=== PATIENT | male | born 1955 | race Caucasian/White ===

== ENCOUNTER 2018-06-23 11:49 | Inpatient (IN) | payer OTHER ==
[~2018-06-23] VITALS: Ht 180.3 cm; Wt 80.1 kg
[~2018-06-23 11:49] MED LIST: ERYT.5TO BOTHEYES
[2018-06-23] MEDS ORDERED: OSTEO BI-FLEX1 EAC4 PO (13:00)
[2018-06-23] MEDS ORDERED: OSTEO BI-FLEX1 EAC3 PO (13:01)
--- NOTE | 2018-06-23 15:39 | NUR ---
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 S/P STENT PLACED X1 TO THE RCA. PT IS ALERT AND ORIENTED. PT DENIES CHEST PAIN. PT STATED " I FEEL 100% BETTER" WHEN HE CAME IN BED. DENIES SHORTNESS OF BREATH. R RADIAL HAS TR BAND WHICH IS INFLATED. SLIGHT BRUISE RIGHT AT THE PUNCTURE SIGHT. PULSES ARE PALPABLE PT DENIES NUMBNESS AND TINGLING TO THE R WRIST. PT STATED "SORE" AT THE PUNCTURE SITE. 1400-ECHOCARDIOGRAM DONE AT THIS TIME. EKG WAS DONE. DR. GUTHRIE WAS CALLED FOR CLARIFICATION ORDERS. ORDERS RECEIVED. 1539-STABLE R RADIAL WRIST. STILL DENIES OF CHEST PAIN, NO SHORTNESS OF BREATH. FAMILY AT BEDSIDE AT THIS TIME.
--- NOTE | 2018-06-23 16:58 | NUR ---
1600-STARTED DEFLATING TR BAND AT THIS TIME. SITE STABLE. 1630-SEEN BY DR. ARBOLEDA SAT. UPDATED HER OF PT'S STATUS. NOTIFIED ADMITTING REGARDING DR. GUTHRIE REQUESTING DR. ARBOLEDA TO BE THE ADMITTING PHYSICIAN AND HE THE CONSULTING PHYSICIAN. 1645-DR. GUTHRIE WAS NOTIFIED REGARDING PT'S EPISODE OF HR IN THE 30s FOR A SHORT PERIOD OF TIME BUT PT WAS ASYMPTOMATIC. NO ORDERS RECEIVED BUT HE WANTED TO KEEP PT ICU STATUS DUE TO THE HR IN THE 30s.
--- NOTE | 2018-06-23 17:44 | NUR ---
SEEN BY DR. GUTHRIE.
--- NOTE | 2018-06-23 17:48 | NUR ---
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 TR BAND STILL INFLATED WITH 2CC AIR. WILL COMPLETELY DEFLATE CUFF SOON. PT IS AFEBRILE. EATING DINNER AT THIS TIME. PT'S DAUGHTER AT BEDSIDE. PT GIVEN INSTRUCTIONS REGARDING R RADIAL ACCESS SITE CARE. PT'S STENT CARD WAS INSERTED TO PT'S DISCHARGE INSTRUCTION ENVELOPE. PT WAS GIVEN EDUCATION PACKET. THESE EDUCATION PACKETS WERE INSERTED WITH PT'S DISCHARGE INSTURCTION ENVELOPE. ENCOURAGED PT AND DAUGHTER TO READ EDUCATION PACKET.
[2018-06-23 17:49] LABS: BASOPHILS ABSOLUTE AUTO 0.04 K/mm3 (0.00-0.23); BASOPHILS PERCENT AUTO 0 % (0-2); EOSINOPHILS ABSOLUTE AUTO 0.06 K/mm3 (0.00-0.68); EOSINOPHILS PERCENT AUTO 0 % (0-6); Hematocrit 41.5 % (37.0-53.0); Hemoglobin 13.8 g/dL (13.5-17.5); IMMATURE GRAN ABSOLUTE AUTO 0.05 K/mm3 (0.00-0.10); IMMATURE GRAN PERCENT AUTO 0 % (0-1); LYMPHOCYTES ABSOLUTE AUTO 1.82 K/mm3 (0.84-5.20); LYMPHOCYTES PERCENT AUTO 13 % (21-46); MONOCYTES ABSOLUTE AUTO 0.97 K/mm3 (0.16-1.47); MONOCYTES PERCENT AUTO 7 % (4-13); Mean Corpuscular HGB 30.9 pg (26.0-34.0); Mean Corpuscular HGB Conc 33.3 g/dL (31.5-36.5); Mean Corpuscular Volume 93 fL (80-100); Mean Platelet Volume 10.3 fL (9.1-12.4); NEUTROPHILS ABSOLUTE AUTO 11.61 K/mm3 (1.96-9.15); NEUTROPHILS PERCENT AUTO 80 % (41-73); Platelet Count 265 K/mm3 (150-400); RDW Standard Deviation 44.2 fL (35.1-46.3); Red Blood Cell Count 4.47 M/mm3 (4.30-5.90); White Blood Cell Count 14.55 K/mm3 (4.00-11.30)
[2018-06-23 18:15] LABS: Alanine Aminotransfer (ALT/SGP 23 U/L (12-78); Albumin, Blood 3.6 g/dL (3.4-5.0); Alk Phos 67 U/L (50-136); Anion Gap 6 mmol/L (6-16); Aspartate Aminotrans (AST/SGOT 36 U/L (12-37); Bilirubin, Total 0.3 mg/dL (0.1-1.0); Blood Urea Nitrogen 11 mg/dL (8-24); Bun/Creatinine Ratio 16.3 (12.0-20.0); CO2, Blood 23 mmol/L (21-32); Calcium, Blood 9.2 mg/dL (8.5-10.1); Chloride, Blood 110 mmol/L (98-108); Creatinine, Blood 0.67 mg/dL (0.60-1.20); Globulin, Blood 3.5 g/dL (2.2-4.0); Glomerular Filtration Rate >60 (60-); Glucose, Blood 97 mg/dL (70-99); Potassium, Blood 3.9 mmol/L (3.5-5.5); Sodium, Blood 139 mmol/L (136-145); Total Protein, Blood 7.1 g/dL (6.4-8.2)
--- NOTE | 2018-06-23 19:00 | NUR ---
[place] of Care: Patient alert and oriented x4, sitting upright in bed watching tv. Denies chest pain/discomfort, SOB, or dyspnea. VSS, O2-96-98% on RA. Hearth rhythm shows sinus bradycardia to NSR, 50's-70's. Rt radial access site wnl, no s/s of bleeding or hematoma, distal tempt, color, sensation wnl. Clear occlusive dressing and arm-board in place to rt radial access site. Patient instructed to not push, pull, or lift objects with rt hand. Peripheral IV to lt AC patent and intact. Uses urinal at bedside without difficulty. Call light in reach, makes, needs known. Will continue to monitor for pain, comfort, safety.
--- NOTE | 2018-06-23 19:05 | NUR ---
REMOVED TR BAND TO R WRIST AFTER BEING DEFLATED FOR AN HOUR. SLIGHT BRUISING CLOSE TO PUNCTURE SITE STILL PRESENT BUT HAS NOT PROGRESSED. PLACED A CLEAR DRESSING TO THE SITE.
--- NOTE | 2018-06-24 06:27 | NUR ---
Shift Summary: Patient slept on/off throughout shift. Continues to deny pain, discomfort, SOB, or dyspnea. VSS, O2-96-98% on RA. Heart rate mostly in the 40's while sleeping/resting, but patient remains asymptomatic, BP stable. Rt radial access site remains wnl, no s/s of bleeding or hematoma. Using urinal at bedside without difficulty. Call light in reach, makes needs known. Will continue to monitor until report to day shift RN.
--- NOTE | 2018-06-24 07:30 | NUR ---
ASSUMED CARE OF PT. PT IS ALERT AND ORIENTED. DENIES CHEST PAIN. AFEBRILE. R RADIAL WRIST ACCESS SITE IS STABLE.
--- NOTE | 2018-06-24 09:30 | NUR ---
PT AMBULATED AROUND THE UNIT. PT WAS ACCOMPANIED BY WILLIS REARDON. PT DENIES OF ANY CHEST PAIN OR DISCOMFORT NOR SHORTNESS OF BREATH DURING AMBULATION.
[2018-06-24] MEDS ORDERED: ASPI81CH PO (10:03)
[2018-06-24] MEDS ORDERED: ATOR80 PO (10:04)
[2018-06-24] MEDS ORDERED: CLOP75 PO (10:04)
[2018-06-24] MEDS ORDERED: Nicoderm Cq1 EAC1 TOP (10:05)
[2018-06-24] MEDS ORDERED: NITR.4SL SL (10:06)
--- NOTE | 2018-06-24 10:36 | NUR ---
DR. LEWIS WAS NOTIFIED THAT PT'S HR IN THE 50S. PT WAS ABLE TO AMBULATE AROUND THE UNIT, DENIES ANY CHEST PAIN OR SHORTNESS OF BREATH. 10 MINS AFTER HE AMBULATED PT HAD A 13 BEATH RUN OF V-TACH. PT WAS ASYMPTOMATIC THEN. DR. LEWIS STATED TO HOLD PT'S DISCHARGE UNTIL THIS AFTERNOON PROVIDED PT HAS NOT SHOWN ANY SIGNS OF SUSTAINED V-TACH.
--- NOTE | 2018-06-24 15:00 | NUR ---
SPOKE WITH DR. LEWIS AGAIN, PT HAD ANOTHER EPISODE OF 6 BEAT RUN V-TACH. PT WAS ASYMPTOMATIC WITH THESE EPISODES. PT HR STILL IN THE 50s. DR. LEWIS OKAYED PT TO GO HOME.
--- NOTE | 2018-06-24 15:43 | NUR ---
PT IS DISCHARGED AT THIS TIME. DISCHARGE INSTRUCTIONS GIVEN TO PT. STENT CARD INSIDE PT'S DISCHARGE INSTRUCTIONS ENVELOPE.
== END 2018-06-24 15:35 | disposition home or self-care (01) | DRG 249 ==
LOC: ER 11:49 → ICUW 11:50
PROVIDERS: Internal Medicine Interventional Cardiology; ADMIT Family Medicine
PROC: 4A023N7 Measurement of Cardiac Sampling and Pressure, Left Heart, Percutaneous Approach (ICD-10-PCS; principal; 2018-06-23)
PROC: 02703DZ Dilation of Coronary Artery, One Artery with Intraluminal Device, Percutaneous Approach (ICD-10-PCS; 2018-06-23)
PROC: B210YZZ Fluoroscopy of Single Coronary Artery using Other Contrast (ICD-10-PCS; 2018-06-23)
DX: I21.3 ST elevation (STEMI) myocardial infarction of unspecified site (principal); I10 Essential (primary) hypertension; F17.210 Nicotine dependence, cigarettes, uncomplicated; R00.1 Bradycardia, unspecified
CPT/HCPCS: 36415; 80053; 85025; 92928; 92941; 92978; 93005; 93010; 93306; 93458; 99152; 99153; 99285; C1725; C1753; C1757; C1769; C1876; C1894; J0461; J1265; J1644; J1650; J2250; J3010; J7030; Q9967

== ENCOUNTER 2018-12-18 07:20 | Emergency (ER) | payer OTHER ==
[~2018-12-18] VITALS: Ht 180.3 cm; Wt 81.7 kg
[~2018-12-18 07:20] MED LIST changes: +ASPI81CH PO; +ATOR80 PO; +CLOP75 PO; +NITR.4SL SL; +Nicoderm Cq1 EAC1 TOP; +OSTEO BI-FLEX1 EAC3 PO; +OSTEO BI-FLEX1 EAC4 PO
[2018-12-18] MEDS ORDERED: ROSU5 PO (07:38)
[2018-12-18 08:03] LABS: BASOPHILS ABSOLUTE AUTO 0.05 K/mm3 (0.00-0.23); BASOPHILS PERCENT AUTO 1 % (0-2); EOSINOPHILS ABSOLUTE AUTO 0.16 K/mm3 (0.00-0.68); EOSINOPHILS PERCENT AUTO 2 % (0-6); Hematocrit 41.8 % (37.0-53.0); Hemoglobin 13.9 g/dL (13.5-17.5); IMMATURE GRAN ABSOLUTE AUTO 0.02 K/mm3 (0.00-0.10); IMMATURE GRAN PERCENT AUTO 0 % (0-1); LYMPHOCYTES ABSOLUTE AUTO 2.23 K/mm3 (0.84-5.20); LYMPHOCYTES PERCENT AUTO 28 % (21-46); MONOCYTES ABSOLUTE AUTO 0.88 K/mm3 (0.16-1.47); MONOCYTES PERCENT AUTO 11 % (4-13); Mean Corpuscular HGB 30.2 pg (26.0-34.0); Mean Corpuscular HGB Conc 33.3 g/dL (31.5-36.5); Mean Corpuscular Volume 91 fL (80-100); Mean Platelet Volume 10.5 fL (9.1-12.4); NEUTROPHILS ABSOLUTE AUTO 4.53 K/mm3 (1.96-9.15); NEUTROPHILS PERCENT AUTO 58 % (41-73); Platelet Count 290 K/mm3 (150-400); RDW Coefficient Variation 12.7 % (11.7-14.2); RDW Standard Deviation 41.6 fL (35.1-46.3); White Blood Cell Count 7.87 K/mm3 (4.00-11.30)
[2018-12-18 09:24] LABS: Alanine Aminotransfer (ALT/SGP 36 U/L (12-78); Albumin, Blood 3.8 g/dL (3.4-5.0); Albumin/Globulin Ratio 1.2 (0.8-1.8); Alk Phos 65 U/L (50-136); Anion Gap 3 mmol/L (6-16); Aspartate Aminotrans (AST/SGOT 26 U/L (12-37); Bilirubin, Total 0.5 mg/dL (0.1-1.0); Blood Urea Nitrogen 12 mg/dL (8-24); Bun/Creatinine Ratio 15.7 (12.0-20.0); CO2, Blood 26 mmol/L (21-32); Calcium, Blood 8.3 mg/dL (8.5-10.1); Chloride, Blood 111 mmol/L (98-108); Creatinine, Blood 0.76 mg/dL (0.60-1.20); Globulin, Blood 3.3 g/dL (2.2-4.0); Glomerular Filtration Rate >60 (60-); Glucose, Blood 105 mg/dL (70-99); Potassium, Blood 4.3 mmol/L (3.5-5.5); Sodium, Blood 140 mmol/L (136-145); Total Protein, Blood 7.1 g/dL (6.4-8.2); Troponin I <0.015 ng/mL (0.000-0.040)
== END 2018-12-18 09:46 | disposition home or self-care (01) ==
LOC: ER 07:20
PROVIDERS: Emergency Medicine
DX: R07.9 Chest pain, unspecified (principal); I25.2 Old myocardial infarction; F17.290 Nicotine dependence, other tobacco product, uncomplicated; Z88.5 Allergy status to narcotic agent; Z88.8 Allergy status to other drugs, medicaments and biological substances; Z79.899 Other long term (current) drug therapy; Z79.82 Long term (current) use of aspirin
CPT/HCPCS: 36415; 71046; 80053; 83690; 84484; 85025; 93005; 93010; 99285-25

== ENCOUNTER → 2019-01-26 | Outpatient (CLI) | payer OTHER ==
[~2019-01-26] MED LIST changes: +ROSU5 PO
[2019-01-27 14:12] LABS: Stool Occult Bld Immuno 1 Negative (NEGATIVE)
== END ==
LOC: LAB 14:00 → LAB SHORT 14:00
PROVIDERS: Nurse Practitioner Family
DX: Z12.11 Encounter for screening for malignant neoplasm of colon (principal)
CPT/HCPCS: G0328

== ENCOUNTER 2020-11-11 18:09 | Emergency (ER) | payer OTHER ==
[~2020-11-11] VITALS: Ht 180.3 cm; Wt 82.5 kg
[2020-11-11 18:40] LABS: BASOPHILS ABSOLUTE AUTO 0.06 K/mm3 (0.00-0.23); BASOPHILS PERCENT AUTO 1 % (0-2); EOSINOPHILS ABSOLUTE AUTO 0.23 K/mm3 (0.00-0.68); EOSINOPHILS PERCENT AUTO 2 % (0-6); Hematocrit 34.8 % (37.0-53.0); Hemoglobin 11.2 g/dL (13.5-17.5); IMMATURE GRAN ABSOLUTE AUTO 0.02 K/mm3 (0.00-0.10); IMMATURE GRAN PERCENT AUTO 0 % (0-1); LYMPHOCYTES ABSOLUTE AUTO 2.16 K/mm3 (0.84-5.20); LYMPHOCYTES PERCENT AUTO 20 % (21-46); MONOCYTES ABSOLUTE AUTO 1.06 K/mm3 (0.16-1.47); MONOCYTES PERCENT AUTO 10 % (4-13); Mean Corpuscular HGB 26.6 pg (26.0-34.0); Mean Corpuscular HGB Conc 32.2 g/dL (31.5-36.5); Mean Corpuscular Volume 83 fL (80-100); Mean Platelet Volume 9.9 fL (9.1-12.4); NEUTROPHILS ABSOLUTE AUTO 7.19 K/mm3 (1.96-9.15); NEUTROPHILS PERCENT AUTO 67 % (41-73); Platelet Count 394 K/mm3 (150-400); RDW Coefficient Variation 14.6 % (11.7-14.2); RDW Standard Deviation 44.6 fL (35.1-46.3); Red Blood Cell Count 4.21 M/mm3 (4.30-5.90); White Blood Cell Count 10.72 K/mm3 (4.00-11.30)
[2020-11-11 18:56] LABS: International Normalized Ratio 1.05; Prothrombin Time Results 11.3 Sec (9.7-11.5)
[2020-11-11 18:57] LABS: Alanine Aminotransfer (ALT/SGP 15 U/L (12-78); Albumin, Blood 3.4 g/dL (3.4-5.0); Albumin/Globulin Ratio 0.7 (0.8-1.8); Alk Phos 68 U/L (50-136); Anion Gap 8 mmol/L (6-16); Aspartate Aminotrans (AST/SGOT 23 U/L (12-37); Bilirubin, Total 0.4 mg/dL (0.1-1.0); Blood Urea Nitrogen 15 mg/dL (8-24); CO2, Blood 25 mmol/L (21-32); Calcium, Blood 8.8 mg/dL (8.5-10.1); Chloride, Blood 106 mmol/L (98-108); Creatinine, Blood 1.15 mg/dL (0.60-1.20); Globulin, Blood 4.7 g/dL (2.2-4.0); Glomerular Filtration Rate >60 (60-); Glucose, Blood 94 mg/dL (70-99); Potassium, Blood 3.8 mmol/L (3.5-5.5); Sodium, Blood 139 mmol/L (136-145); Total Protein, Blood 8.1 g/dL (6.4-8.2)
[2020-11-11] MEDS ORDERED: CARVEDILOL3.125 MG PO (19:21)
[2020-11-11] MEDS ORDERED: ATOR40TA PO (19:22)
[2020-11-11 22:48] LABS: Source, Urine Clean Catch
[2020-11-11 22:50] LABS: Bilirubin, Urine Neg (Neg); Blood, Urine 2+ (Neg); Glucose Qualitative, Urine Neg (Neg); Ketones, Urine 3+ (Neg); Leukocyte Esterase, Urine Neg (Neg); Nitrite, Urine Neg (Neg); Protein, Urine 2+ (Neg); Urobilinogen, Urine NORM (Normal)
[2020-11-11 22:55] LABS: Appearance, Urine Clear (Clear); Color, Urine Yellow (P-Yellow)
[2020-11-11 22:56] LABS: Bacteria Mod /hpf; Squamous Epithelial Cells Not Seen /hpf (Few); White Blood Cells, Urine 0-2 /hpf (0-5)
== END 2020-11-12 | disposition short-term general hospital (02) ==
LOC: ER 18:09
PROVIDERS: Physician Assistant
DX: S37.022A Major contusion of left kidney, initial encounter (principal); I25.2 Old myocardial infarction; F17.210 Nicotine dependence, cigarettes, uncomplicated; Z95.5 Presence of coronary angioplasty implant and graft; Z88.6 Allergy status to analgesic agent; Z88.5 Allergy status to narcotic agent; Z79.02 Long term (current) use of antithrombotics/antiplatelets; Z79.899 Other long term (current) drug therapy; X58.XXXA Exposure to other specified factors, initial encounter
CPT/HCPCS: 36415; 74177; 80053; 81001; 85025; 85610; 85730; 86850; 86900; 86901; 87086; 96374; 96375; 96376; 99284-25; J1170; J2270; J3010; Q9967

== ENCOUNTER 2021-01-30 13:44 | Emergency (ER) | payer OTHER ==
[~2021-01-30] VITALS: Ht 180.3 cm; Wt 77.1 kg
[~2021-01-30 13:44] MED LIST changes: +ATOR40TA PO; +CARVEDILOL3.125 MG PO
[2021-01-30 14:41] LABS: BASOPHILS ABSOLUTE AUTO 0.05 K/mm3 (0.00-0.23); BASOPHILS PERCENT AUTO 1 % (0-2); EOSINOPHILS ABSOLUTE AUTO 0.21 K/mm3 (0.00-0.68); EOSINOPHILS PERCENT AUTO 2 % (0-6); Hematocrit 34.3 % (37.0-53.0); Hemoglobin 10.9 g/dL (13.5-17.5); IMMATURE GRAN ABSOLUTE AUTO 0.03 K/mm3 (0.00-0.10); IMMATURE GRAN PERCENT AUTO 0 % (0-1); LYMPHOCYTES ABSOLUTE AUTO 1.81 K/mm3 (0.84-5.20); LYMPHOCYTES PERCENT AUTO 19 % (21-46); MONOCYTES ABSOLUTE AUTO 0.87 K/mm3 (0.16-1.47); MONOCYTES PERCENT AUTO 9 % (4-13); Mean Corpuscular HGB 26.3 pg (26.0-34.0); Mean Corpuscular HGB Conc 31.8 g/dL (31.5-36.5); Mean Corpuscular Volume 83 fL (80-100); Mean Platelet Volume 10.1 fL (9.1-12.4); NEUTROPHILS ABSOLUTE AUTO 6.79 K/mm3 (1.96-9.15); NEUTROPHILS PERCENT AUTO 70 % (41-73); Platelet Count 368 K/mm3 (150-400); RDW Coefficient Variation 16.1 % (11.7-14.2); RDW Standard Deviation 49.1 fL (35.1-46.3); Red Blood Cell Count 4.15 M/mm3 (4.30-5.90); White Blood Cell Count 9.76 K/mm3 (4.00-11.30)
[2021-01-30 14:58] LABS: Alanine Aminotransfer (ALT/SGP 20 U/L (12-78); Albumin, Blood 3.4 g/dL (3.4-5.0); Albumin/Globulin Ratio 0.7 (0.8-1.8); Alk Phos 70 U/L (50-136); Anion Gap 7 mmol/L (6-16); Aspartate Aminotrans (AST/SGOT 18 U/L (12-37); Bilirubin, Total 0.5 mg/dL (0.1-1.0); Blood Urea Nitrogen 19 mg/dL (8-24); Bun/Creatinine Ratio 16.7 (12.0-20.0); CO2, Blood 24 mmol/L (21-32); Chloride, Blood 106 mmol/L (98-108); Creatinine, Blood 1.14 mg/dL (0.60-1.20); Globulin, Blood 4.8 g/dL (2.2-4.0); Glomerular Filtration Rate >60 (60-); Glucose, Blood 102 mg/dL (70-99); Potassium, Blood 3.8 mmol/L (3.5-5.5); Sodium, Blood 137 mmol/L (136-145); Total Protein, Blood 8.2 g/dL (6.4-8.2)
[2021-01-30 16:23] LABS: International Normalized Ratio 1.15
[2021-01-30 17:06] LABS: Source, Urine Clean Catch
[2021-01-30 17:10] LABS: Appearance, Urine Clear (Clear); Bilirubin, Urine Neg (Neg); Blood, Urine 2+ (Neg); Color, Urine Amber (P-Yellow); Glucose Qualitative, Urine Neg (Neg); Ketones, Urine 1+ (Neg); Leukocyte Esterase, Urine Neg (Neg); Nitrite, Urine Neg (Neg); Protein, Urine 1+ (Neg); Specific Gravity, Urine 1.025 (1.003-1.022); Urobilinogen, Urine NORM (Normal)
[2021-01-30 17:31] LABS: Bacteria Few /hpf; Calcium Oxalate Crystals Rare /hpf; Red Blood Cells, Urine 0-2 /hpf (0-2); Squamous Epithelial Cells Rare /hpf (Few); White Blood Cells, Urine 0-2 /hpf (0-5)
[2021-01-30 18:58] LABS: SARS-Cov-2 (COVID-19) PCR, MMC NEGATIVE (NEGATIVE)
== END 2021-01-30 19:26 | disposition home or self-care (01) ==
LOC: ER 13:44
PROVIDERS: Physician Assistant
DX: N28.89 Other specified disorders of kidney and ureter (principal); I25.2 Old myocardial infarction; Z20.822 Contact with and (suspected) exposure to COVID-19; F17.200 Nicotine dependence, unspecified, uncomplicated; Z88.5 Allergy status to narcotic agent; Z88.6 Allergy status to analgesic agent; Z79.82 Long term (current) use of aspirin; Z79.899 Other long term (current) drug therapy
CPT/HCPCS: 36415; 74177; 80053; 81001; 85025; 85610; 85730; 96374-59; 96375; 96376; 99284-25; J1170; J2405; J7030; Q9967; U0004

== ENCOUNTER 2021-07-26 05:57 | Day surgery (SDC) | payer OTHER ==
[~2021-07-26] VITALS: Ht 180.3 cm; Wt 77.4 kg
[~2021-07-26 05:57] MED LIST changes: +MULVITA PO; +TAMS.4ER PO
--- NOTE | 2021-07-26 07:02 | NUR ---
Patient up to Ambulate independently. Gait steady. Surgical site prepped with 2% Chlorhexidine cloth wipe. History, Chart, Medications and Allergies reviewed before start of procedure.Pre-Op teaching done. Pt verbalizes understanding.
--- NOTE | 2021-07-26 10:05 | NUR ---
Dressing to procedure site clean, dry, intact with no visible drainage, swelling, erythema or bruising noted. Discharge instructions reviewed with patient. Patient verbalizes understanding. Copy given to patient to take home.
--- NOTE | 2021-07-26 10:22 | NUR ---
Discharged via wheelchair to private car for ride home.
== END 2021-07-26 10:24 | disposition home or self-care (01) ==
LOC: ORSCMMR 05:57 → ORD 07:30 → ORSCMMR 10:24
PROVIDERS: Surgery
PROC: 0YU60JZ Supplement Left Inguinal Region with Synthetic Substitute, Open Approach (ICD-10-PCS; principal; 2021-07-26 07:30)
DX: K40.90 Unilateral inguinal hernia, without obstruction or gangrene, not specified as recurrent (principal); I25.10 Atherosclerotic heart disease of native coronary artery without angina pectoris; E78.5 Hyperlipidemia, unspecified; I25.2 Old myocardial infarction; Z79.899 Other long term (current) drug therapy; Z87.891 Personal history of nicotine dependence
CPT/HCPCS: A9270; C1781; J0171; J0690; J1100; J2250; J2370; J2405; J2704; J3010; J7120

== ENCOUNTER 2022-02-27 09:40 | Emergency (ER) | payer OTHER ==
[~2022-02-27] VITALS: Ht 180.3 cm; Wt 77.1 kg
[2022-02-27 11:17] LABS: Influenza A, PCR POSITIVE (NEGATIVE); Influenza B, PCR NEGATIVE (NEGATIVE); Resp Syncytial Virus, PCR NEGATIVE (NEGATIVE); SARS-Cov-2 (COVID-19) PCR, MMC NEGATIVE (NEGATIVE)
[2022-02-27 11:53] LABS: Source, Urine Clean Catch
[2022-02-27 11:57] LABS: Appearance, Urine Clear (Clear); Bilirubin, Urine Neg (Neg); Blood, Urine 4+ (Neg); Color, Urine Yellow (P-Yellow); Glucose Qualitative, Urine Neg (Neg); Ketones, Urine 2+ (Neg); Leukocyte Esterase, Urine Neg (Neg); Nitrite, Urine Neg (Neg); Protein, Urine 2+ (Neg); Specific Gravity, Urine 1.025 (1.003-1.022); Urobilinogen, Urine NORM (Normal)
[2022-02-27 12:04] LABS: Bacteria Few /hpf; Hyaline Casts 0-2 /lpf (0-2); Squamous Epithelial Cells Rare /hpf (Few); White Blood Cells, Urine 0-2 /hpf (0-5)
== END 2022-02-27 13:35 | disposition left against medical advice (07) ==
LOC: ER 09:40
PROVIDERS: Physician Assistant
DX: J10.1 Influenza due to other identified influenza virus with other respiratory manifestations (principal); Z88.5 Allergy status to narcotic agent; I25.2 Old myocardial infarction; Z79.899 Other long term (current) drug therapy; F17.200 Nicotine dependence, unspecified, uncomplicated; Z20.822 Contact with and (suspected) exposure to COVID-19; Z53.21 Procedure and treatment not carried out due to patient leaving prior to being seen by health care provider
CPT/HCPCS: 0241U; 81001